=== PATIENT | male | born 1965 | race Hispanic/Latino ===

== ENCOUNTER 2019-02-20 23:24 | Emergency (ER) | payer OTHER ==
--- NOTE | 2019-02-21 00:16 | ED PDOC ---
HPI: Psych/Substance Abuse Time Seen by Provider: 02/21/19 00:00 Chief Complaint (Nursing): Psychiatric Evaluation Chief Complaint (Provider): psych eval History Per: Patient, EMS Additional Complaint(s): 54 y/o male history of anxiety, bipolar disorder brought in by EMS for psych evaluation. Patient states he has been staying with a friend and now the friend says he cannot stay with them; patient states he did not feel safe going back to his apartment in [place] because he has been feeling anxious. Denies suicidal/homicidal ideations, hallucinations, acute physical complaints. Past Medical History Reviewed: Historical Data, Nursing Documentation, Vital Signs Vital Signs: Last Vital Signs Temp 97.7 F 02/20/19 23:29 Pulse 81 02/20/19 23:29 Resp 16 02/20/19 23:29 BP 114/81 02/20/19 23:29 Pulse Ox 100 02/20/19 23:29 - Medical History PMH: Anxiety, Bipolar Disorder - Surgical History Surgical History: No Surg Hx - Family History Family History: States: No Known Family Hx - Living Arrangements Living Arrangements: Alone - Social History Current smoker - smoking cessation education provided: Yes Alcohol: Social Drugs: Denies - Allergies Allergies/Adverse Reactions: Allergies Allergy/AdvReac Type Severity Reaction Status Date / Time codeine Allergy RASH Verified 02/20/19 23:29 Review of Systems ROS Statement: Except As Marked, All Systems Reviewed And Found Negative Physical Exam - Reviewed Nursing Documentation Reviewed: Yes Vital Signs Reviewed: Yes - Physical Exam Appears: Positive for: Well, Non-toxic, No Acute Distress Head Exam: Positive for: ATRAUMATIC, NORMAL INSPECTION, NORMOCEPHALIC Skin: Positive for: Normal Color Eye Exam: Positive for: Normal appearance ENT: Positive for: Normal ENT Inspection Cardiovascular/Chest: Positive for: Regular Rate, Rhythm Respiratory: Positive for: Normal Breath Sounds Gastrointestinal/Abdominal: Positive for: Normal Exam Back: Positive for: Normal Inspection Extremity: Positive for: Normal ROM Neurological/Psych: Positive for: Awake, Alert, Oriented (x3) - ECG O2 Sat by Pulse Oximetry: 100 - Progress ED Course And Treament: -crisis eval 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 Lee Patient requires no further intervention in the ED and is stable for discharge at this time Disposition - Clinical Impression Clinical Impression: Anxiety - Patient ED Disposition Is Patient to be Admitted: No Counseled Patient/Family Regarding: Diagnosis, Need For Followup - Disposition Disposition: Routine/Home Disposition Time: 03:19 Condition: GOOD Instructions: Anxiety, Adult (DC)
[2019-02-21 03:56] VITALS: BP 114/74; PULSE 80; RESP 17; TEMP 97.8; O2SAT 96
== END 2019-02-21 03:56 | disposition home or self-care (01) ==
LOC: H.ER 23:24
DX: F41.9 Anxiety disorder, unspecified (principal)